=== PATIENT | male | born 1950 | race Caucasian/White ===

== ENCOUNTER 2017-11-19 09:15 | Outpatient (RCR) | payer MEDICARE, OTHER, SELFPAY ==
[2017-10-20 01:20] VITALS: BP 120/70; BP 140/80
--- NOTE | 2017-11-19 10:59 | PCM.CR.ITP ---
Exercise - Initial Assessment - Stages of Change Stages of Change:: Contemplate - Exercise Prescription Mode:: Treadmill, Biodyne, Airdyne, NuStep, Arm Ergometer Angina with exercise?: No - Hypertension Do any of the following apply?: Yes - Intervention Home Exercise/Activity Goal:: Sitting Time <3 hrs/day - Education Goals:: Warm-up, RPE DANIKA Scale, S/S, Safe Exercise, Self-Monitoring - Exercise Program Goals Exercise Program Goals: Aerobic Activity >30 min, B/P <140/90 Exercise - 30-day Assessment - Stages of Change Stages of Change:: Action - Exercise Prescription Mode:: Treadmill, Rower, Airdyne, NuStep Frequency (x/week): 3 Duration:: 35 METs - Progression: 0.5-1 MET as tolerated: 2.5 Target Heart Rate:: 91-106 Max HR 100 - Intervention Home Exercise/Activity Goal:: Sitting Time <3 hrs/day - Education Goals:: Warm-up, RPE DANIKA Scale, S/S, Safe Exercise, Self-Monitoring - Exercise Program Goals Exercise Program Goals: Aerobic Activity >30 min Exercise - 60-Day Assessment - Visit Date of Eval: 10/17/17 - Stages of Change Stages of Change:: Action - Exercise Prescription Mode:: Treadmill, Airdyne, NuStep Frequency (x/week): 3 Duration:: 30 METs: 3.9 Target Heart Rate:: 124-128 Max HR 100 - Hypertension Medication Changes:: No - Intervention Home Exercise/Activity Goal:: Sitting Time <3 hrs/day - Education Goals:: Warm-up, RPE DANIKA Scale, S/S, Safe Exercise, Self-Monitoring - Exercise Program Goals Exercise Program Goals: Aerobic Activity >30 min, B/P <140/90 Exercise - 90-Day Assessment - Visit Date of Eval: 11/19/17 Session #:: 28 - Stages of Change Stages of Change:: Action - Exercise Prescription Mode:: Treadmill, Airdyne, NuStep Frequency (x/week): 3 Duration:: 30 METs: 5.9 Target Heart Rate:: 124-128 Max HR 101 - Hypertension Medication Changes:: No - Intervention Home Exercise/Activity Goal:: Moderate Exercise 30 min/day x 5 days/wk - Education Goals:: Warm-up, RPE DANIKA Scale, S/S, Safe Exercise, Self-Monitoring - Exercise Program Goals Exercise Program Goals: Aerobic Activity >30 min, B/P <140/90 Exercise - Final/Discharge - Hypertension Do any of the following apply?: Yes Nutrition - Initial Assessment - Program Goals Nutrition Program Goals: LDL <70. Total Cholesterol <200. HDL >45. Triglycerides <150. HgbA1C <7%. BMI <25 - Stages of Change Stages of Change:: Contemplate - Diabetes Diabetes:: No Hgb A1C: 6.2 Non-Insulin Dependent?: Yes Do you monitor your blood sugar at home?: Yes - Weight Management Body Fat %:: 33 Total Score:: 2 - Intervention Referral to dietitian:: No Referral to Diabetic Clinic:: No Will attend diet classes:: Yes - Education Gave educational materials for:: Signs & symptoms of hypoglycemia, Signs & symptoms of hyperglycemia, Relate diabetes to coronary artery disease, Healthy eating Nutrition - 30-Day Assessment - Program Goals Nutrition Program Goals: LDL <70. Total Cholesterol <200. HDL >45. Triglycerides <150. HgbA1C <7%. BMI <25 - Stages of Change Stages of Change:: Action - Lipids Has the patient seen the dietitian?: No - Diabetes Diabetes:: No Hgb A1C: 6.2 Non-Insulin Dependent?: Yes - Intervention Referral to dietitian:: No Referral to Diabetic Clinic:: No Will attend diet classes:: Yes - Education Attended class for:: Signs & symptoms of hypoglycemia, Signs & symptoms of hyperglycemia, Relate diabetes to coronary artery disease, Healthy eating Nutrition - 60-Day Assessment - Program Goals Nutrition Program Goals: LDL <70. Total Cholesterol <200. HDL >45. Triglycerides <150. HgbA1C <7%. BMI <25 - Visit Date of Eval: 10/17/17 - Stages of Change Stages of Change:: Action - Lipids Has the patient seen the dietitian?: No - Diabetes Diabetes:: No Hgb A1C: 6.2 Non-Insulin Dependent?: Yes - Intervention Referral to dietitian:: No Referral to Diabetic Clinic:: No Will attend diet classes:: Yes - Education Attended class for:: Signs & symptoms of hypoglycemia, Signs & symptoms of hyperglycemia, Relate diabetes to coronary artery disease, Healthy eating Nutrition - 90-Day Assessment - Program Goals Nutrition Program Goals: LDL <70. Total Cholesterol <200. HDL >45. Triglycerides <150. HgbA1C <7%. BMI <25 - Visit Date of Eval: 11/19/17 - Stages of Change Stages of Change:: Action - Lipids Has the patient seen the dietitian?: No - Diabetes Diabetes:: No Hgb A1C: 6.2 Non-Insulin Dependent?: Yes Random Blood Glucose:: 135 - 135-261 - Weight Management Weight:: 106.141 kg - Intervention Referral to dietitian:: No Referral to Diabetic Clinic:: No Will attend diet classes:: Yes - Education Attended class for:: Signs & symptoms of hypoglycemia, Signs & symptoms of hyperglycemia, Relate diabetes to coronary artery disease, Healthy eating Nutrition - Final Assessment - Program Goals Nutrition Program Goals: LDL <70. Total Cholesterol <200. HDL >45. Triglycerides <150. HgbA1C <7%. BMI <25 - Diabetes Diabetes:: No Hgb A1C: 6.2 Non-Insulin Dependent?: Yes - Weight Management Body Fat %:: 33 Total Score:: 2 - Intervention Referral to dietitian:: No Referral to Diabetic Clinic:: No Will attend diet classes:: Yes Tobacco - Initial Assessment - Program Goals Tobacco Program Goals: Complete smoking cessation. Attend education classes. Improve Knowledge Test score - Stage of Change Stages of Change:: Contemplate - Learning Barriers Learning Barriers: Vision Total Score:: 10 - Family Support Do you have family support?: Yes - Tobacco Use Tobacco Use: Non-smoker How long ago did you quit using tobacco products?: Greater than or equal to 6 months ago Do you use smokeless tobacco?: No - Intervention Smoking Cessation Referral:: No Individual Education/Counseling:: No Education Schedule Given:: Yes - Education Gave educational material for:: Tobacco triggers, Coronary artery disease, Risk factors, Sexuality, Medical compliance, Cardiac A&P, Angina signs & symptoms Tobacco - 30-Day Assessment - Program Goals Tobacco Program Goals: Complete smoking cessation. Attend education classes. Improve Knowledge Test score - Stage of Change Stages of Change:: Action - Learning Barriers Learning Barriers: Participates in education - Family Support Do you have family support?: Yes - Tobacco Use Tobacco Use: Non-smoker Do you use smokeless tobacco?: No - Intervention Smoking Cessation Referral:: No Individual Education/Counseling:: No Education Schedule Given:: Yes - Education Attended class for:: Tobacco triggers, Coronary artery disease, Risk factors, Sexuality, Medical compliance, Cardiac A&P, Angina signs & symptoms Tobacco - 60-Day Assessment - Program Goals Tobacco Program Goals: Complete smoking cessation. Attend education classes. Improve Knowledge Test score - Stage of Change Stages of Change:: Action - Learning Barriers Learning Barriers: Participates in education - Family Support Do you have family support?: Yes - Tobacco Use Tobacco Use: Non-smoker Do you use smokeless tobacco?: No - Intervention Smoking Cessation Referral:: No Individual Education/Counseling:: No Education Schedule Given:: Yes - Education Attended class for:: Tobacco triggers, Coronary artery disease, Risk factors, Sexuality, Medical compliance, Cardiac A&P, Angina signs & symptoms Tobacco - 90-Day Assessment - Program Goals Tobacco Program Goals: Complete smoking cessation. Attend education classes. Improve Knowledge Test score - Stage of Change Stages of Change:: Action - Learning Barriers Learning Barriers: Participates in education - Family Support Do you have family support?: Yes - Tobacco Use Tobacco Use: Non-smoker Do you use smokeless tobacco?: No - Intervention Smoking Cessation Referral:: No Individual Education/Counseling:: No Education Schedule Given:: Yes - Education Attended class for:: Tobacco triggers, Coronary artery disease, Risk factors, Sexuality, Medical compliance, Cardiac A&P, Angina signs & symptoms Tobacco - Final Assessment - Program Goals Tobacco Program Goals: Complete smoking cessation. Attend education classes. Improve Knowledge Test score - Learning Barriers Cardiac Knowledge Test Score:: 10 - Family Support Do you have family support?: Yes - Tobacco Use Tobacco Use: Non-smoker Do you use smokeless tobacco?: No - Intervention Smoking Cessation Referral:: No Individual Education/Counseling:: No Education Schedule Given:: Yes Psychosocial - Initial Assess - Target Goals Target Goals: Assess presence or absence of depression. Using a valid screening tool, maximizes coping skills. Positive support system - Stages of Change Stages of Change:: Contemplate - Psychosocial Test Tool Used:: HANDS Depression Questionnaire Tests Completed: SF - 36 survey completed, Mood Scale Test Total Mood Screening Score:: 7 Self-Efficacy Score:: 6 - Intervention PS - Interventions: Yes Attend Stress Management Classes, Yes Uses Stress Management Skills, No Referral to Mental Health, No Referral to [facility] Case Management, No Referral to Physician - Patient/Program Goal Preventative Medication(s):: Aspirin, MAURISIO inhibitor, Clopidogrel, Beta antonio, Statin/lipid - Assistive Devices Assistive Devices:: None Fall Risk Assessed:: Yes Psychosocial - 30-Day Assess - Target Goals Target Goals: Assess presence or absence of depression. Using a valid screening tool, maximizes coping skills. Positive support system - Stages of Change Stages of Change:: Action - Psychosocial Test Tool Used:: HANDS Depression Questionnaire Total Mood Screening Score:: 7 Self-Efficacy Score:: 6 - Patient/Program Goal Preventative Medication(s):: Aspirin, MAURISIO inhibitor, Clopidogrel, Beta antonio, Statin/lipid - Assistive Devices Assistive Devices:: None Fall Risk Assessed:: Yes Psychosocial - 60-Day Assess - Target Goals Target Goals: Assess presence or absence of depression. Using a valid screening tool, maximizes coping skills. Positive support system - Stages of Change Stages of Change:: Action - Psychosocial Test Tool Used:: HANDS Depression Questionnaire Total Mood Screening Score:: 7 Self-Efficacy Score:: 6 - Patient/Program Goal Preventative Medication(s):: Aspirin, MAURISIO inhibitor, Clopidogrel, Beta antonio, Statin/lipid - Assistive Devices Assistive Devices:: None Fall Risk Assessed:: Yes Psychosocial - 90-Day Assess - Target Goals Target Goals: Assess presence or absence of depression. Using a valid screening tool, maximizes coping skills. Positive support system - Stages of Change Stages of Change:: Action - Psychosocial Test Tool Used:: HANDS Depression Questionnaire Total Mood Screening Score:: 7 Self-Efficacy Score:: 6 - Intervention PS - Interventions: Yes Attend Stress Management Classes, Yes Uses Stress Management Skills, No Referral to Mental Health, No Referral to [facility] Case Management, No Referral to Physician - Education Attended classes for:: Coping techniques, Signs & symptoms of depression, Stress management, Relaxation techniques - Patient/Program Goal Preventative Medication(s):: Aspirin, MAURISIO inhibitor, Clopidogrel, Beta antonio, Statin/lipid - Assistive Devices Assistive Devices:: None Fall Risk Assessed:: Yes Psychosocial - Final Assessmen - Target Goals Target Goals: Assess presence or absence of depression. Using a valid screening tool, maximizes coping skills. Positive support system - Psychosocial Test Tool Used:: HANDS Depression Questionnaire Tests Completed: SF - 36 survey completed, Mood Scale Test Total Mood Screening Score:: 7 Self-Efficacy Score:: 6 - Patient/Program Goal Preventative Medication(s):: Aspirin, MAURISIO inhibitor, Clopidogrel, Beta antonio, Statin/lipid - Assistive Devices Assistive Devices:: None Fall Risk Assessed:: Yes Patient Health Questionnaire 90-Day Re-eval Assessment 1. Little interest or pleasure in doing things: Not at all 2. Feeling down, depressed, or hopeless: Not at all 3. Trouble falling or staying asleep, or sleeping too much: Not at all 4. Feeling tired or having little energy: Not at all 5. Poor appetite or overeating: Not at all 6. Feeling bad about yourself -- or that you are a failure or have let yourself or your family down: Not at all 7. Trouble concentrating on things, such as reading the newspaper or watching television: Not at all 8. Moving or speaking so slowly that other people could have noticed. Or the opposite - being so fidgety or restless that you have been moving around a lot more than usual: Not at all 9. Thoughts that you would be better off , or of hurting yourself in some way: Not at all Total Score: 0 Self-Efficacy 90-Day Re-eval Assessment We would like to know how confident you are in doing certain activities. Please select your confidence level for:: Select your confidence level for the following using the scale 1-10 where 1 is not at all confident and 10 is totally confident. Your score is the average of all 6 responses. Fatigue: How confident are you that you can keep the fatigue caused by your disease from interfering with the things you want to do? Select Number: 10 Physical Discomfort or Pain: How confident are you that you can keep the physical discomfort or pain of your disease from interfering with the things you want to do? Select Number: 10 Emotional Distress: How confident are you that you can keep the emotional distress caused by your disease from interfering with the things you want to do? Select Number: 10 Other Symptoms or Health Problems: How confident are you that you can keep other symptoms or health problems from interfering with the things you want to do? Select Number: 10 Different Tasks and Activities: How confident are you that you can do the different tasks and activities needed to manage your health condition so as to reduce your need to see a doctor? Select Number: 10 Medication: How confident are you that you can do things other than just taking medication to reduce how much your illness affects your everyday life? Select Number: 10 Total Score:: 10 Cardiac Rehabilitation Goals - Cardiac Rehab Goals Cardiac Rehabilitation Goals: 1. Maintain the individual as the primary focus of care. 2. To improve the patient's quality of life. 3. Identification of cardiac risk factors and provide cardiac risk factor management. 4. Enhance the psychosocial status of the patient. 5. Reconditioning enough to allow the patient to resume customary activities. 6. Control symptoms of cardiac disease - Scale Scale for measuring improvement of personal goals: Enter appropriate number in Comments. 2 = Unchanged. 3 = Slightly Better. 4 = Moderate Improvement. 5 = Met my Goal 90-Day Re-eval Assessment Personal Goals: 30-day Re-assessment: Improve energy level - Met, Get back to work, or to resume activities faster - Met, Improve knowledge of cardiac disease - improved., Improve muscle strength and endurance - ongoing improvement., Improve diet and eating habits (eat healthier) - Could benefit from diabetic education/superintendent distribution consult, Control risk factors (learn risk factor modification) - needs improved BS control
== END 2017-11-19 23:59 ==
LOC: CR 09:15
PROVIDERS: Family Provider Student in an Organized Health Care Education/Training Program; PCP Student in an Organized Health Care Education/Training Program; Visit Provider Internal Medicine Cardiovascular Disease
DX: I25.10 Atherosclerotic heart disease of native coronary artery without angina pectoris (principal); Z95.1 Presence of aortocoronary bypass graft; I25.2 Old myocardial infarction
CPT/HCPCS: 93798

== ENCOUNTER 2017-12-08 09:15 | Outpatient (RCR) | payer MEDICARE, OTHER, SELFPAY ==
[2017-08-19 22:24] VITALS: BP 162/89
[2017-08-22 10:53] VITALS: BMI 28.9
[2017-11-20 00:45] VITALS: BP 120/70; BP 140/80
[2017-12-16 08:03] VITALS: BP 126/66; BP 150/70
--- NOTE | 2017-12-16 08:03 | CR.ITP_ITS ---
Exercise - Initial Assessment - Stages of Change Stages of Change:: Contemplate - Exercise Prescription Mode:: Treadmill, Biodyne, Airdyne, NuStep, Arm Ergometer Angina with exercise?: No - Hypertension Do any of the following apply?: Yes - Intervention Home Exercise/Activity Goal:: Sitting Time <3 hrs/day - Education Goals:: Warm-up, RPE DANIKA Scale, S/S, Safe Exercise, Self-Monitoring - Exercise Program Goals Exercise Program Goals: Aerobic Activity >30 min, B/P <140/90 Exercise - 30-day Assessment - Stages of Change Stages of Change:: Action - Exercise Prescription Mode:: Treadmill, Rower, Airdyne, NuStep Frequency (x/week): 3 Duration:: 35 METs - Progression: 0.5-1 MET as tolerated: 2.5 Target Heart Rate:: 91-106 Max HR 100 - Intervention Home Exercise/Activity Goal:: Sitting Time <3 hrs/day - Education Goals:: Warm-up, RPE DANIKA Scale, S/S, Safe Exercise, Self-Monitoring - Exercise Program Goals Exercise Program Goals: Aerobic Activity >30 min Exercise - 60-Day Assessment - Visit Date of Eval: 11/19/17 - Stages of Change Stages of Change:: Action - Exercise Prescription Mode:: Treadmill, Airdyne, NuStep Frequency (x/week): 3 Duration:: 30 METs: 5.9 Target Heart Rate:: 124-128 Max HR 101 - Hypertension Medication Changes:: No - Intervention Home Exercise/Activity Goal:: Moderate Exercise 30 min/day x 5 days/wk - Education Goals:: Warm-up, RPE DANIKA Scale, S/S, Safe Exercise, Self-Monitoring - Exercise Program Goals Exercise Program Goals: Aerobic Activity >30 min, B/P <140/90 Exercise - 90-Day Assessment - Visit Date of Eval: 11/19/17 - Stages of Change Stages of Change:: Action - Exercise Prescription Mode:: Treadmill, Airdyne, NuStep Frequency (x/week): 3 Duration:: 30 METs: 5.9 Target Heart Rate:: 124-128 Max HR 101 - Hypertension Medication Changes:: No - Intervention Home Exercise/Activity Goal:: Moderate Exercise 30 min/day x 5 days/wk - Education Goals:: Warm-up, RPE DANIKA Scale, S/S, Safe Exercise, Self-Monitoring - Exercise Program Goals Exercise Program Goals: Aerobic Activity >30 min, B/P <140/90 Exercise - Final/Discharge - Visit Date of Eval: 12/16/17 - Patient completed CR 12/08/17 - Stages of Change Stages of Change:: Action - Exercise Prescription Mode:: Treadmill, Airdyne, NuStep Frequency (x/week): 3 Duration:: 30 METs: 5.9 Target Heart Rate:: 124-128 w/ Max HR 101 - Hypertension Do any of the following apply?: Yes Resting Blood Pressure:: 126/66 Peak Exercise Blood Pressure:: 150/70 - Intervention Home Exercise/Activity Goal:: Moderate Exercise 30 min/day x 5 days/wk - Education Goal Progress: Goal Met - Exercise Program Goals Exercise Program Goals: Aerobic Activity >30 min Nutrition - Initial Assessment - Program Goals Nutrition Program Goals: LDL <70. Total Cholesterol <200. HDL >45. Triglycerides <150. HgbA1C <7%. BMI <25 - Stages of Change Stages of Change:: Contemplate - Diabetes Diabetes:: No Hgb A1C: 6.2 Non-Insulin Dependent?: Yes Do you monitor your blood sugar at home?: Yes - Weight Management Body Fat %:: 33 Total Score:: 2 - Intervention Referral to dietitian:: No Referral to Diabetic Clinic:: No Will attend diet classes:: Yes - Education Gave educational materials for:: Signs & symptoms of hypoglycemia, Signs & symptoms of hyperglycemia, Relate diabetes to coronary artery disease, Healthy eating Nutrition - 30-Day Assessment - Program Goals Nutrition Program Goals: LDL <70. Total Cholesterol <200. HDL >45. Triglycerides <150. HgbA1C <7%. BMI <25 - Stages of Change Stages of Change:: Action - Lipids Has the patient seen the dietitian?: No - Diabetes Diabetes:: No Hgb A1C: 6.2 Non-Insulin Dependent?: Yes - Intervention Referral to dietitian:: No Referral to Diabetic Clinic:: No Will attend diet classes:: Yes - Education Attended class for:: Signs & symptoms of hypoglycemia, Signs & symptoms of hyperglycemia, Relate diabetes to coronary artery disease, Healthy eating Nutrition - 60-Day Assessment - Program Goals Nutrition Program Goals: LDL <70. Total Cholesterol <200. HDL >45. Triglycerides <150. HgbA1C <7%. BMI <25 - Visit Date of Eval: 11/19/17 - Stages of Change Stages of Change:: Action - Lipids Has the patient seen the dietitian?: No - Diabetes Diabetes:: No Hgb A1C: 6.2 Non-Insulin Dependent?: Yes Random Blood Glucose:: 135 - 135-261 - Intervention Referral to dietitian:: No Referral to Diabetic Clinic:: No Will attend diet classes:: Yes - Education Attended class for:: Signs & symptoms of hypoglycemia, Signs & symptoms of hyperglycemia, Relate diabetes to coronary artery disease, Healthy eating Nutrition - 90-Day Assessment - Program Goals Nutrition Program Goals: LDL <70. Total Cholesterol <200. HDL >45. Triglycerides <150. HgbA1C <7%. BMI <25 - Visit Date of Eval: 11/19/17 - Stages of Change Stages of Change:: Action - Lipids Has the patient seen the dietitian?: No - Diabetes Diabetes:: No Hgb A1C: 6.2 Non-Insulin Dependent?: Yes Random Blood Glucose:: 135 - 135-261 - Intervention Referral to dietitian:: No Referral to Diabetic Clinic:: No Will attend diet classes:: Yes - Education Attended class for:: Signs & symptoms of hypoglycemia, Signs & symptoms of hyperglycemia, Relate diabetes to coronary artery disease, Healthy eating Nutrition - Final Assessment - Program Goals Nutrition Program Goals: LDL <70. Total Cholesterol <200. HDL >45. Triglycerides <150. HgbA1C <7%. BMI <25 - Visit Date of Eval: 12/16/17 - patient discharged 12/08/2017 - Stages of Change Stages of Change:: Action - Diabetes Diabetes:: No Hgb A1C: 6.2 Non-Insulin Dependent?: Yes - Weight Management Height: 6 ft 2 in Weight:: 107.18 kg - weight unchanged Body Fat %:: 33 Total Score:: 2 - Intervention Referral to dietitian:: No Referral to Diabetic Clinic:: No Will attend diet classes:: Yes - Education Education Goal Reached?: Yes Tobacco - Initial Assessment - Program Goals Tobacco Program Goals: Complete smoking cessation. Attend education classes. Improve Knowledge Test score - Stage of Change Stages of Change:: Contemplate - Learning Barriers Learning Barriers: Vision Total Score:: 10 - Family Support Do you have family support?: Yes - Tobacco Use Tobacco Use: Non-smoker How long ago did you quit using tobacco products?: Greater than or equal to 6 months ago Do you use smokeless tobacco?: No - Intervention Smoking Cessation Referral:: No Individual Education/Counseling:: No Education Schedule Given:: Yes - Education Gave educational material for:: Tobacco triggers, Coronary artery disease, Risk factors, Sexuality, Medical compliance, Cardiac A&P, Angina signs & symptoms Tobacco - 30-Day Assessment - Program Goals Tobacco Program Goals: Complete smoking cessation. Attend education classes. Improve Knowledge Test score - Stage of Change Stages of Change:: Action - Learning Barriers Learning Barriers: Participates in education - Family Support Do you have family support?: Yes - Tobacco Use Tobacco Use: Non-smoker Do you use smokeless tobacco?: No - Intervention Smoking Cessation Referral:: No Individual Education/Counseling:: No Education Schedule Given:: Yes - Education Attended class for:: Tobacco triggers, Coronary artery disease, Risk factors, Sexuality, Medical compliance, Cardiac A&P, Angina signs & symptoms Tobacco - 60-Day Assessment - Program Goals Tobacco Program Goals: Complete smoking cessation. Attend education classes. Improve Knowledge Test score - Stage of Change Stages of Change:: Action - Learning Barriers Learning Barriers: Participates in education - Family Support Do you have family support?: Yes - Tobacco Use Tobacco Use: Non-smoker Do you use smokeless tobacco?: No - Intervention Smoking Cessation Referral:: No Individual Education/Counseling:: No Education Schedule Given:: Yes - Education Attended class for:: Tobacco triggers, Coronary artery disease, Risk factors, Sexuality, Medical compliance, Cardiac A&P, Angina signs & symptoms Tobacco - 90-Day Assessment - Program Goals Tobacco Program Goals: Complete smoking cessation. Attend education classes. Improve Knowledge Test score - Stage of Change Stages of Change:: Action - Learning Barriers Learning Barriers: Participates in education - Family Support Do you have family support?: Yes - Tobacco Use Tobacco Use: Non-smoker Do you use smokeless tobacco?: No - Intervention Smoking Cessation Referral:: No Individual Education/Counseling:: No Education Schedule Given:: Yes - Education Attended class for:: Tobacco triggers, Coronary artery disease, Risk factors, Sexuality, Medical compliance, Cardiac A&P, Angina signs & symptoms Tobacco - Final Assessment - Program Goals Tobacco Program Goals: Complete smoking cessation. Attend education classes. Improve Knowledge Test score - Stage of Change Stages of Change:: Action - Learning Barriers Cardiac Knowledge Test Score:: 10 - Family Support Do you have family support?: Yes - Tobacco Use Tobacco Use: Non-smoker Do you use smokeless tobacco?: No - Intervention Smoking Cessation Referral:: No Individual Education/Counseling:: No Education Schedule Given:: Yes - Education Education Goal Reached?: Yes Psychosocial - Initial Assess - Target Goals Target Goals: Assess presence or absence of depression. Using a valid screening tool, maximizes coping skills. Positive support system - Stages of Change Stages of Change:: Contemplate - Psychosocial Test Tool Used:: HANDS Depression Questionnaire Tests Completed: SF - 36 survey completed, Mood Scale Test Total Mood Screening Score:: 7 Self-Efficacy Score:: 6 - Education Gave educational materials for:: Coping techniques, Signs & symptoms of depression, Stress management, Relaxation techniques - Patient/Program Goal Preventative Medication(s):: Aspirin, MAURISIO inhibitor, Clopidogrel, Beta antonio, Statin/lipid - Assistive Devices Assistive Devices:: None Fall Risk Assessed:: Yes Psychosocial - 30-Day Assess - Target Goals Target Goals: Assess presence or absence of depression. Using a valid screening tool, maximizes coping skills. Positive support system - Stages of Change Stages of Change:: Action - Psychosocial Test Tool Used:: HANDS Depression Questionnaire Total Mood Screening Score:: 7 Self-Efficacy Score:: 6 - Patient/Program Goal Preventative Medication(s):: Aspirin, MAURISIO inhibitor, Clopidogrel, Beta antonio, Statin/lipid - Assistive Devices Assistive Devices:: None Fall Risk Assessed:: Yes Psychosocial - 60-Day Assess - Target Goals Target Goals: Assess presence or absence of depression. Using a valid screening tool, maximizes coping skills. Positive support system - Stages of Change Stages of Change:: Action - Psychosocial Test Tool Used:: HANDS Depression Questionnaire Total Mood Screening Score:: 7 Self-Efficacy Score:: 6 - Education Attended classes for:: Coping techniques, Signs & symptoms of depression, Stress management, Relaxation techniques - Patient/Program Goal Preventative Medication(s):: Aspirin, MAURISIO inhibitor, Clopidogrel, Beta antonio, Statin/lipid - Assistive Devices Assistive Devices:: None Fall Risk Assessed:: Yes Psychosocial - 90-Day Assess - Target Goals Target Goals: Assess presence or absence of depression. Using a valid screening tool, maximizes coping skills. Positive support system - Stages of Change Stages of Change:: Action - Psychosocial Test Tool Used:: HANDS Depression Questionnaire Total Mood Screening Score:: 7 Self-Efficacy Score:: 6 - Education Attended classes for:: Coping techniques, Signs & symptoms of depression, Stress management, Relaxation techniques - Patient/Program Goal Preventative Medication(s):: Aspirin, MAURISIO inhibitor, Clopidogrel, Beta antonio, Statin/lipid - Assistive Devices Assistive Devices:: None Fall Risk Assessed:: Yes Psychosocial - Final Assessmen - Target Goals Target Goals: Assess presence or absence of depression. Using a valid screening tool, maximizes coping skills. Positive support system - Stages of Change Stages of Change:: Action - Psychosocial Test Tool Used:: HANDS Depression Questionnaire Tests Completed: SF - 36 survey completed, Mood Scale Test Total Mood Screening Score:: 7 Self-Efficacy Score:: 6 - Intervention PS - Interventions: Yes Attend Stress Management Classes, Yes Uses Stress Management Skills, No Referral to Mental Health, No Referral to [facility] Case Management, No Referral to Physician - Education Education Goal Reached?: Yes - Patient/Program Goal Preventative Medication(s):: Aspirin, MAURISIO inhibitor, Clopidogrel, Beta antonio, Statin/lipid - Assistive Devices Assistive Devices:: None Fall Risk Assessed:: Yes Patient Health Questionnaire Discharge Assessment 1. Little interest or pleasure in doing things: Not at all 2. Feeling down, depressed, or hopeless: Not at all 3. Trouble falling or staying asleep, or sleeping too much: Not at all 4. Feeling tired or having little energy: Not at all 5. Poor appetite or overeating: Not at all 6. Feeling bad about yourself -- or that you are a failure or have let yourself or your family down: Not at all 7. Trouble concentrating on things, such as reading the newspaper or watching television: Not at all 8. Moving or speaking so slowly that other people could have noticed. Or the opposite - being so fidgety or restless that you have been moving around a lot more than usual: Not at all 9. Thoughts that you would be better off , or of hurting yourself in some way: Not at all Total Score: 0 Knowledge Test - Check your knowledge Discharge The #1 cause of in the [place] each year is:: Heart disease Which of the following is a common treatment for heart disease?: All of the above The arteries that feed the heart are called:: Coronary arteries HDL cholesterol is known as the good cholesterol.: True What disease increases your risk for heart disease?: Diabetes What food product raises blood cholesterol level the most?: Saturated fat The bad cholesterol in the blood is called:: LDL Hypertension is another word for:: High blood pressure A blood pressure reading of 148/88 is considered normal.: False Exercise will only benefit your health when your heart rate reaches a target level.: False Total Score:: 10 Self-Efficacy Discharge Assessment We would like to know how confident you are in doing certain activities. Please select your confidence level for:: Select your confidence level for the following using the scale 1-10 where 1 is not at all confident and 10 is totally confident. Your score is the average of all 6 responses. Fatigue: How confident are you that you can keep the fatigue caused by your disease from interfering with the things you want to do? Select Number: 9 Physical Discomfort or Pain: How confident are you that you can keep the physical discomfort or pain of your disease from interfering with the things you want to do? Select Number: 10 Emotional Distress: How confident are you that you can keep the emotional distress caused by your disease from interfering with the things you want to do? Select Number: 10 Other Symptoms or Health Problems: How confident are you that you can keep other symptoms or health problems from interfering with the things you want to do? Select Number: 9 Different Tasks and Activities: How confident are you that you can do the different tasks and activities needed to manage your health condition so as to reduce your need to see a doctor? Select Number: 10 Medication: How confident are you that you can do things other than just taking medication to reduce how much your illness affects your everyday life? Select Number: 10 Total Score:: 9 Nutrition Survey - Nutrition Survey Instructions Scoring Instructions: Scoring is as follows: Yes = 1 points. No = 0 point. Patient score that is >/=12 is considered to be at potential nutritional risk and could benefit from a referral to a registered dietitian. - Nutrition Survey Discharge Have you lost >10 lbs over the past 2 months without trying?: No Are you following a special diet at home for diabetes, low fat, or low salt?: Yes Are you interested in meeting with a dietitian for help understanding your diet? : No Do you eat less than 3 meals a day?: No Do you eat fatty meats (subramanian, sausage, ribs, etc), fried foods, desserts, large amounts of salad dressings, margarine, butter, or cheese most days?: No Do you have food allergies? [Enter types in comment field]: No Do you eat in restaurants more than 3 times a week?: No Do you season food with salt, seasoning salt, or garlic salt?: No Do you used canned, boxed, frozen meals, or soups, seasoning packets?: Yes Total Score:: 2 Cardiac Rehabilitation Goals - Cardiac Rehab Goals Cardiac Rehabilitation Goals: 1. Maintain the individual as the primary focus of care. 2. To improve the patient's quality of life. 3. Identification of cardiac risk factors and provide cardiac risk factor management. 4. Enhance the psychosocial status of the patient. 5. Reconditioning enough to allow the patient to resume customary activities. 6. Control symptoms of cardiac disease - Scale Scale for measuring improvement of personal goals: Enter appropriate number in Comments. 2 = Unchanged. 3 = Slightly Better. 4 = Moderate Improvement. 5 = Met my Goal Discharge Assessment Personal Goals: Discharge Reassessment: Improve management of stress and emotions, Improve energy level, Improve knowledge of cardiac disease, Improve muscle strength and endurance, Improve diet and eating habits (eat healthier), Control risk factors (learn risk factor modification)
== END 2017-12-08 11:00 | disposition home or self-care (01) ==
LOC: CR 09:15
PROVIDERS: Family Provider Student in an Organized Health Care Education/Training Program; PCP Student in an Organized Health Care Education/Training Program; Visit Provider Internal Medicine Cardiovascular Disease
DX: I25.10 Atherosclerotic heart disease of native coronary artery without angina pectoris (principal); Z95.1 Presence of aortocoronary bypass graft; I25.2 Old myocardial infarction
CPT/HCPCS: 93798

== ENCOUNTER 2018-05-28 21:41 | Observation (INO) | payer MEDICARE, OTHER, SELFPAY ==
[2018-05-28 21:42] VITALS: BP 149/80; PULSE 64; RESP 16; TEMP 36.3; O2SAT 98; BMI 28.2
[2018-05-28 21:57] VITALS: O2SAT 99
[2018-05-28 22:09] LABS: Absolute Lymphocyte Count 0.92 X10^3/ul (0.83-4.51); Absolute Neutrophil Count 2.8 X10^3/uL (2.0-7.7); Basophil# 0.02 X10^3/uL; Basophil% 0.4 % (0-1); Eosinophil# 0.24 X10^3/uL; Eosinophils% 5.3 % (0-5); Hemoglobin 12.7 g/dl (13.0-16.5); Lymphocyte # 0.92 X10^3/ul (4.0); Lymphocyte % 20.4 % (19-41); Mean Corp Hgb Conc 33.4 g/gl (32-36); Mean Corpuscular Hgb 29.7 pg (27.0-32.0); Mean Platelet Vol. 10.7 fl (6.2-12.0); Monocyte# 0.55 X10^3/uL; Monocyte% 12.2 % (0-10); Neutrophil # 2.77 X10^3/uL (2.7-7.7); Neutrophil % 61.7 % (47-70); Platelet Count 195 K/mm3 (150-450); RBC Distribution Width CV 13.4 % (11.6-14.6); RBC Distribution Width SD 43.5 fl (35.1-43.9); Red Blood Count 4.27 M/mm3 (4.6-6.2); White Blood Count 4.5 K/mm3 (4.4-11.0)
--- NOTE | 2018-05-28 22:10 | RAD_ITS ---
STUDY: X-RAY CHEST REASON FOR EXAM: Male, 67 years old. Chest pain. TECHNIQUE: Single AP portable view of the chest. COMPARISON: 07/11/2017. FINDINGS: There is elevation of the right hemidiaphragm. The lungs are clear and expanded. There is no demonstrated pleural abnormality. Sternal cerclage wires and vascular clips are present from a prior sternotomy and coronary artery bypass graft procedure (CABG). Again are calcified right paratracheal and azygous nodes. Normal visualized pulmonary arteries. There is atherosclerotic calcification of the aortic arch with tortuosity. The thoracic spine is obscured. Normal visualized ribs, clavicles, and shoulders. There is no demonstrated abnormality of the visualized soft tissue structures of the upper abdomen. RAD/Chest 1 View (Portable) IMPRESSION: No significant change. Elevation of the right hemidiaphragm. No active pulmonary disease. Status post CABG. Electronically Signed: William Bagley MD at 22:46 EDT Tel , Service support ,
[2018-05-28 22:11] LABS: POSITIVE COUNT NO; POSITIVE DIFFERENTIAL NO; POSITIVE MORPHOLOGY NO
--- NOTE | 2018-05-28 22:41 | ED.VISSUMM ---
- ER Visit Summary Date of Service: 05/28/18 Chief Complaint: Chest pain History of Present Illness: The patient is a 67 M who presents with chest pain that began approximately 1-2 hours prior to arrival. Patient states he was sitting when the pain began. Patient describes his pain is dull and heavy. Patient states the pain is over the substernal area. Patient denies any radiation of the pain. Patient states nothing seems to make the pain worse. Patient did take one sublingual nitroglycerin which helped his pain. Patient admits to some acid reflux and some palpitations with the pain. Patient denies any nausea or vomiting. Patient denies any shortness of breath or diaphoresis. Patient does have a history of coronary artery disease, hypertension, and diabetes. Physical Examination: Vital signs are stable. Patient is afebrile. Patient is in no acute distress. Oral mucosa is pink and moist. Neck is supple. Trachea is midline. There is no JVD noted. Heart was regular rate and rhythm. Lungs are clear and equal bilaterally. There is good respiratory effort noted. Abdomen is soft. Bowel sounds are normal. There is no tenderness noted. Cranial nerves II through XII are intact. There are no focal motor or sensory deficits noted. The remaining physical exam is within normal limits. Test Results: EKG showed normal sinus rhythm with a rate of 67. There are no acute ST or T-wave changes. There are no changes compared to previous EKG dated 07/03/2017. Chest x-ray does not show any acute cardiopulmonary process. CBC, basic metabolic profile, and troponin were obtained and were essentially within normal limits. Emergency Department Course and Treatment: Patient was given aspirin and sublingual nitroglycerin here. Patient felt better on reevaluation. Patient has a FRED score of 4 and a HEART score of 6. Case was discussed with the hospitalist. Patient will be admitted. Patient understood and was agreeable with the plan. All questions were answered. Disposition: Admit to hospital Impression: Chest pain This note was generated with [employer] dictation software. It may contain incorrect words, spelling, and punctuation that were not noted in review of the chart prior to signing ED Disposition - Plan for ED Patient: Disposition: Acute Care Hospital [facility] Chief Complaint: Chest Pain Diagnosis: Chest pain at rest Referrals: Josse Galvan DO [Primary Care Provider] -
--- NOTE | 2018-05-28 22:45 | ED.DCSUM_ITS ---
- ER Visit Summary Date of Service: 05/28/18 Chief Complaint: Chest pain History of Present Illness: The patient is a 67 M who presents with chest pain that began approximately 1-2 hours prior to arrival. Patient states he was sitting when the pain began. Patient describes his pain is dull and heavy. Patient states the pain is over the substernal area. Patient denies any radiation of the pain. Patient states nothing seems to make the pain worse. Patient did take one sublingual nitroglycerin which helped his pain. Patient admits to some acid reflux and some palpitations with the pain. Patient denies any nausea or vomiting. Patient denies any shortness of breath or diaphoresis. Patient does have a history of coronary artery disease, hypertension, and diabetes. Physical Examination: Vital signs are stable. Patient is afebrile. Patient is in no acute distress. Oral mucosa is pink and moist. Neck is supple. Trachea is midline. There is no JVD noted. Heart was regular rate and rhythm. Lungs are clear and equal bilaterally. There is good respiratory effort noted. Abdomen is soft. Bowel sounds are normal. There is no tenderness noted. Cranial nerves II through XII are intact. There are no focal motor or sensory deficits noted. The remaining physical exam is within normal limits. Test Results: EKG showed normal sinus rhythm with a rate of 67. There are no acute ST or T-wave changes. There are no changes compared to previous EKG dated 07/03/2017. Chest x-ray does not show any acute cardiopulmonary process. CBC, basic metabolic profile, and troponin were obtained and were essentially within normal limits. Emergency Department Course and Treatment: Patient was given aspirin and sublingual nitroglycerin here. Patient felt better on reevaluation. Patient has a FRED score of 4 and a HEART score of 6. Case was discussed with the hospitalist. Patient will be admitted. Patient understood and was agreeable with the plan. All questions were answered. Disposition: Admit to hospital Impression: Chest pain This note was generated with [employer] dictation software. It may contain incorrect words, spelling, and punctuation that were not noted in review of the chart prior to signing ED Disposition - Plan for ED Patient: Disposition: Acute Care Hospital [facility] Chief Complaint: Chest Pain Diagnosis: Chest pain at rest Referrals: Josse Galvan DO [Primary Care Provider] -
[2018-05-28 22:49] LABS: Anion Gap 3 (5-15); BUN 15 mg/dL (7-18); BUN/Creat Ratio 15.3 RATIO (10-20); Calcium,Total 8.9 mg/dL (8.5-10.1); Chloride 102 mmol/L (98-107); Creatinine, Serum 0.98 mg/dL (0.70-1.30); EST Glomerular Filtration Rate 81 mL/min (>60); Est Glom Filt Rate - Afr Amer 97 mL/min (>60); Estimated Creatinine Clearance 78.08 ml/min; Glucose 122 mg/dL (74-106); Potassium 3.6 mmol/L (3.5-5.1); Sodium Level 138 mmol/L (136-145)
[2018-05-28] MEDS: Aspirin 81 MG TAB.CHEW 324 MG PO (22:55)
[2018-05-28 22:56] VITALS: BP 147/91; PULSE 72
[2018-05-28 22:57] VITALS: BP 147/91; PULSE 70; RESP 13; O2SAT 98
[2018-05-28 23:05] VITALS: BP 143/84; PULSE 67
[2018-05-28 23:06] VITALS: BP 143/84; PULSE 70; RESP 13; O2SAT 96
[2018-05-29] VITALS (10 sets, daily range): BP systolic 134–140; BP diastolic 68–78; PULSE 63–87; RESP 14–21; TEMP 36.7–37.1; O2SAT 95–99; BMI 28.7
--- NOTE | 2018-05-29 00:12 | PCM.HP.STD ---
Problem List (1) Chest pain at rest Status: Acute (2) Dyslipidemia Status: Chronic (3) Hypothyroidism Status: Chronic (4) Essential hypertension Status: Chronic History of Present Illness Date of Admission: 05/29/18 Chief Complaint: Chest pain at rest. The patient is a 67 year old M with a significant history of CAD status post CABG in June 2017 at [facility]; former smoker; hypertension; prediabetes/diabetes mellitus; and Hodgkin's lymphoma status post chemotherapy and radiation who presents because of pain in his substernal area. His chest pain AT rest while watching TV in a recliner. He described his chest pain as dull aching and nonradiating. He states that his pain although was mild was similar to his previous chest pain that necessitated a CABG. And like his chest pain that required a CABG, he had a feeling of trying to burp. His symptoms started about one half hours to 2 hours prior to arrival at emergency department. He took a nitroglycerin. He is not so sure whether the nitroglycerin helped him. But he stated that the nitroglycerin gave him headache and made him to forget about his chest pain. At emergency department he was also given 2 doses of sublingual nitroglycerin. At the time of my examination he said that his chest pain had gone away. Patient follows up with Dr. Aleksander Maynard and he is scheduled to see him again next week. Past Medical History Past Medical History (Chronic Problems): Chronic Problems Dyslipidemia (Chronic) Hypothyroidism (Chronic) BMI greater than 30 (Chronic) Essential hypertension (Chronic) Allergies Iodinated Contrast- Oral and IV Dye Adverse Reaction (Verified 05/28/18 21:45) Nausea/Vom/Diarrhea Home Medications: Ambulatory Orders Medication Instructions Recorded Aspirin [Aspirin, Baby] 81 mg PO DAILY@0800 06/18/17 Atorvastatin Calcium [Lipitor] 40 mg PO DAILY 06/18/17 Levothyroxine [Synthroid] 200 mcg PO SUMOTUWETHFR 06/18/17 Levothyroxine [Synthroid] 400 mcg PO SA 06/18/17 Magnesium 400 mg PO BID 06/18/17 Metoprolol Succinate 100 mg PO TID 06/18/17 Multivitamin [Multiple Vitamins] 1 each PO DAILY 06/18/17 Ubidecarenone [Co Q-10] 10 mg PO DAILY 06/18/17 Cholecalciferol (Vitamin D3) 1 tab PO DAILY 08/19/17 [Vitamin D3] Losartan Potassium [Cozaar] 50 mg PO BID 08/19/17 hydrALAZINE [Apresoline] 25 mg PO TID #90 tablet 08/19/17 Acetaminophen [Tylenol Extra 500 mg PO Q6H PRN PRN 05/28/18 Strength] Potassium Chloride [K-Dur] 20 meq PO DAILY 05/28/18 Triamterene 37.5MG/Hctz 25MG 1 tablet PO DAILY 05/28/18 [Maxzide 37.5 mg-25 mg Tablet] Surgical History: cataract, coronary bypass surgery, - - lymphoma Psychiatric History: No pertinent psych hx Lives: Spouse/ Significant Other Smoking Status: Former smoker Drugs: None - *Family History Maternal History Items: - - Patient is not sure if his mom had heart disease Sibling History Items: Heart Disease Review of Systems Constitutional: Denies: Chills, Fever, Weight Change Eyes: Denies: Blurred vision, Pain HEENT: Reports: Difficulty Hearing - Chronicattributes to chemotherapy for Hodgkin's lymphoma. Cardiovascular: Reports: Chest Pain. Denies: Syncope Respiratory: Denies: Cough, Shortness of breath at rest, Sputum production Gastrointestinal: Denies: Abdominal Pain, Nausea, Vomiting Genitourinary: Denies: Dysuria Musculoskeletal: Denies: Joint Pain, Joint Tenderness Skin: Denies: Rash, Wounds Neurological: Denies: Numbness, Tingling, Focal weakness Psychiatric: Denies: Anxiety, Depression, Homicidal Ideations, Suicidal Ideations Hematologic/ Lymphatic: Denies: Easy Bruising, Easy Bleeding VTE Information - Inpt Only VTE Present on Admission: No VTE Mechan Device Prophylaxis: None VTE Pharm Prophylaxis ordered?: Yes Patient Problems: Active and Suspected Problems Chest pain at rest (Acute) - Physical Exam General: Alert, Oriented x3, Cooperative HEENT: Atraumatic, PERRLA, EOMI, Normocephalic Neck: Supple, No JVD, Negative Carotid Bruits Lungs: Clear to auscultation, Normal air movement Cardiovascular: Regular rate, No murmurs, - - Nontender chest Abdomen: Bowel Sounds Present, Soft, Non Tender Extremities: No edema, Capillary Refill Less than 3 Seconds Skin: No rashes, No breakdown Musculoskeletal: No Tenderness to Palpation of Joints or Extremities Neurological: - - Hard of hearingchronic Vital Signs Temp Pulse Resp BP Pulse Ox 97.4 F L 70 13 143/84 H 96 05/28/18 21:42 05/28/18 23:06 05/28/18 23:06 05/28/18 23:06 05/28/18 23:06 Oxygen Flow Rate (L/min) 2 Oxygen Delivery Method Nasal Cannula Weight: 94.347 kg Body Mass Index (BMI) 28.2 Laboratory Tests Past 24 Hrs 05/28/18 05/28/18 21:45 21:45 WBC 4.5 RBC 4.27 L Hgb 12.7 L Hct 38.0 L MCV 89.0 MCH 29.7 MCHC 33.4 RDW 13.4 RDW Differential 43.5 Plt Count 195 MPV 10.7 Immature Gran % (Auto) 0.000 Neut % (Auto) 61.7 Lymph % (Auto) 20.4 Dale % (Auto) 12.2 H Eos % (Auto) 5.3 H Baso % (Auto) 0.4 Absolute Neuts (auto) 2.8 Absolute Lymphs (auto) 0.92 Total Counted Not Reportable Sodium 138 Potassium 3.6 Chloride 102 Carbon Dioxide 33.0 H Anion Gap 3 L BUN 15 Creatinine 0.98 Estim Creat Clear Calc 78.08 Est GFR (MDRD) Af Amer 97 Est GFR (MDRD) Non-Af 81 BUN/Creatinine Ratio 15.3 Glucose 122 H Calcium 8.9 Troponin I < 0.015 Assessment/Plan All Active Problems Chest pain at rest (Acute) Unstable angina pectoris (Acute) The patient is a 67 year old M with a significant history of CAD status post CABG in June 2017 at [facility]; former smoker; hypertension; prediabetes/diabetes mellitus; and Hodgkin's lymphoma status post chemotherapy and radiation with subsequent external chest pain and a HEART score of 6. Chest pain Admit to a monitored bed on PCU Received aspirin 324?1 at emergency department. ASA 81 mg p.o. daily SL NTG 0.4 mg prn as needed for chest pain Serial cardiac enzymes Stat EKG as needed for chest pain Exercise Stress test with nuclear imaging in the AM Home metoprolol held pending stress test in a.m. Hypertension Losartan, Triamterene, Hydralazine po continued We will hold metoprolol for now pending stress test in the a.m. Hydralazine as needed for systolic blood pressure more than 160. Hypothyroidism Home Synthroid continue. Prediabetes/diabetes Patient states that he has been a prediabetes to borderline diabetes any controlled his diet to manage his diabetes. N.p.o. for stress test in a.m. When patient is ready for diet I recommend cardiac calorie controlled diet with no concentrated sweets. DVT prophylaxis ordered. Subcutaneous Lovenox. Code Visit OBSV E&M: 96736 Initial observation care L3
--- NOTE | 2018-05-29 01:02 | NURSING ---
ED REPORT RECEIVED. CALLED STORE ASSISTANT, OK FOR PATIENT TO COME TO FLOOR.
[2018-05-29 05:02] LABS: Hemoglobin 11.8 g/dl (13.0-16.5); Mean Corp Hgb Conc 33.7 g/gl (32-36); Mean Corpuscular Hgb 29.9 pg (27.0-32.0); Mean Corpuscular Volume 88.8 fL (80-94); Platelet Count 166 K/mm3 (150-450); RBC Distribution Width CV 13.3 % (11.6-14.6); RBC Distribution Width SD 43.4 fl (35.1-43.9); Red Blood Count 3.94 M/mm3 (4.6-6.2); White Blood Count 3.3 K/mm3 (4.4-11.0)
[2018-05-29 05:04] LABS: Scan Indicated on CBC? Y/N NO
[2018-05-29 05:20] LABS: Anion Gap 7 (5-15); BUN 14 mg/dL (7-18); BUN/Creat Ratio 16.2 RATIO (10-20); Calcium,Total 8.9 mg/dL (8.5-10.1); Chloride 106 mmol/L (98-107); Creatinine, Serum 0.86 mg/dL (0.70-1.30); EST Glomerular Filtration Rate 93 mL/min (>60); Est Glom Filt Rate - Afr Amer 113 mL/min (>60); Estimated Creatinine Clearance 88.98 ml/min; Glucose 114 mg/dL (74-106); International Normalized Ratio 1.1; Potassium 3.3 mmol/L (3.5-5.1); Prothrombin Time (Protime)PT. 13.9 SECONDS (11.7-14.9); Sodium Level 143 mmol/L (136-145)
[2018-05-29 05:21] LABS: Partial Thromboplast Time 28.9 Seconds (24.1-36.2)
--- NOTE | 2018-05-29 06:09 | STE_ITS ---
Reason For Study: Chest Pain Stress Results Protocol: Navarro Protocol Maximum Predicted HR: 151 bpm Target HR: 128 bpm% Max imum Predicted HR: 65 % DurationHeart Rate Stage (mm:ss) (bpm) BPCom ment Baseline 65 118/72 No Chest Pain Navarro Protocol Stage I 3:00 81 124/68No Chest Pain Navarro Protocol Stage II 3:00 90 130/70No Chest Pain; Mild Dyspnea Navarro Protocol Stage III 3:00 98 160/72No Chest Pain; Moderate Dyspnea; Leg Pain Recovery 69 122/74 No Chest Pain Stress Duration: 9:00 mm:ss Maximum Stress HR: 98 bpmME TS: 10 Baseline Echocardiogram Findings The estimated ejection fraction is 65 %. Stress Echo Wall motion Data Resting WMIntermediate WMStress WM Resting Wall Motion Wall Motion Stress No regional wall motion No regional wall motion abnormalities noted. abnormalities noted. EKG Data Normal intervals are noted. The patient exercised according to the regular Navarro protocol for a total duration of 9:00. The maximum heart rate attained was 112 beats per minute. This was 74% of maximum predicted heart rate. The patient exercised into stage 4 of the Navarro protocol. During stress, there were no ST or T wave changes noted to suggest ischemia. No clinical angina was noted. Interpretation Summary The estimated ejection fraction is 65 %. Normal, adequate, treadmill echocardiogram. Negative for ischemia by EKG and echocardiographic criteria. No anginal symptoms noted. Rare PVC noted. Appropriate blood pressure response to exercise. Average exercise capacity for age. Final LVEF is 75%. Although patient did not reach target heart rate, he had an excellent rate pressure product making this an adequate stress test for evaluation of ischemia. Test terminated due to leg discomfort. No complications. Ordering Physician: Vasquez Hyatt Referring Physician: Jose Hancock Performed By: Rosey Smith, CARLOS, RVT
[2018-05-29] MEDS: Aspirin 81 MG TAB.CHEW PO (06:24)
[2018-05-29] MEDS: hydrALAZINE 25 MG Tablet PO (06:24)
[2018-05-29] MEDS: Losartan Potassium 50 MG Tablet PO (06:25)
[2018-05-29] MEDS: Levothyroxine 100 MCG Tablet 200 MCG PO (06:25)
[2018-05-29] MEDS: Multivitamins,Therapeutic Tablet 1 TABLET PO (09:13)
[2018-05-29] MEDS: Triamterene 37.5MG/Hctz 25MG Capsule 1 CAP PO (09:13)
[2018-05-29] MEDS: Magnesium Oxide 400 MG Tablet PO (09:14)
[2018-05-29] MEDS: Acetaminophen 500 MG Tablet PO (09:42)
--- NOTE | 2018-05-29 12:32 | PCM.DC ---
- Discharge Diagnoses Current Active Problems: Current Active and Chronic Problems Chest pain at rest (Acute) You will use the following diet at home:: Cardiac Your food should be the consistency of: Regular Your liquids should be the consistency of: Regular/Thin Discharge Activity: Return to Normal Activity Allergies/Adverse Reactions: Allergies Iodinated Contrast- Oral and IV Dye Adverse Reaction (Verified 05/28/18 21:45) Nausea/Vom/Diarrhea Medications to take at Discharge Aspirin [Aspirin, Baby] 162 mg PO DAILY@0800 06/18/17 Atorvastatin Calcium [Lipitor] 40 mg PO DAILY 06/18/17 Levothyroxine [Synthroid] 200 mcg PO MOTUTHFR 06/18/17 Levothyroxine [Synthroid] 400 mcg PO MOWE 06/18/17 Magnesium 400 mg PO BID 06/18/17 Metoprolol Succinate 100 mg PO TID 06/18/17 Multivitamin [Multiple Vitamins] 1 each PO DAILY 06/18/17 Ubidecarenone [Co Q-10] 10 mg PO DAILY 06/18/17 Cholecalciferol (Vitamin D3) [Vitamin D3] 1 tab PO DAILY 08/19/17 Losartan Potassium [Cozaar] 50 mg PO BID 08/19/17 Acetaminophen [Tylenol] 500 mg PO Q6H PRN PRN 05/28/18 Potassium Chloride [K-Dur] 20 meq PO DAILY 05/28/18 Triamterene 37.5MG/Hctz 25MG [Maxzide 37.5 mg-25 mg Tablet] 1 tablet PO DAILY 05/28/18 hydrALAZINE [Apresoline] 25 mg PO TID 05/29/18 Primary Care Physician: Josse Galvan DO [Primary Care Provider] - Please follow up with your Primary Care Physician in: 1-2 weeks Test Results: Test results from this visit will be discussed in further detail at your follow-up appointment, if applicable. Proposed Discharge Date: 05/29/18
--- NOTE | 2018-05-29 13:59 | PCM.DC.SUM ---
<Fredi Jules - Last Filed: 05/29/18 13:59> Discharge Date and Diagnosis Date of Admission: 05/29/18 Date of Discharge: 05/29/18 - Primary Discharge Diagnosis Chest pain, musculoskeletal HLD Hypothyroidism HTN - Secondary Discharge Diagnosis Chronic Problems Dyslipidemia (Chronic) Hypothyroidism (Chronic) BMI greater than 30 (Chronic) Essential hypertension (Chronic) Hospital Course and Treatment Imaging Results: Interpretation Summary The estimated ejection fraction is 65 %. Normal, adequate, treadmill echocardiogram. Negative for ischemia by EKG and echocardiographic criteria. No anginal symptoms noted. Rare PVC noted. Appropriate blood pressure response to exercise. Average exercise capacity for age. Final LVEF is 75%. Although patient did not reach target heart rate, he had an excellent rate pressure product making this an adequate stress test for evaluation of ischemia. Test terminated due to leg discomfort. No complications. RAD/Chest 1 View (Portable) IMPRESSION: No significant change. Elevation of the right hemidiaphragm. No active pulmonary disease. Status post CABG. Operations: None Procedures: Stress test Summary of Care Provided: Physical exam on day of discharge: General: Resting comfortably NAD Psych: A/Ox3 normal affect HEENT: PEARRLA AT NC Neck: Supple NT CV: RRR no m/t/r/g/h Resp: CTA Abd: [id number] Soft NT no guarding or rigidity Ext: DP2+= no edema Skin: W/D normal turgor Lymph/Heme: No active bleeding or adenopathy Neuro: CN2-12 intact Hospital course: The patient is a 67 year old M with history of CAD with prior CABG in June 2017 at [facility], former smoker, hypertension, prediabetes, history of Hodgkin's lymphoma who developed chest pain at home while he was sitting in recliner. Angelica for about 2 hours, he reported to the emergency room and was given nitro, he is not sure if the nitro helped him. His chest pain resolved spontaneously overnight. In the ER he had negative troponin, negative chest x-ray, negative EKG. He was placed in the PCU and placed on telemetry. No events on the monitor overnight. Repeat EKG was negative. Troponin negative ?3. Later that morning he underwent stress test which was negative for ischemia. He was discharged home in stable condition and was advised to follow-up with his PCP in 1 week. He also follows with Dr. Aleksander Elmore and he should follow-up with him as directed. This patient was seen by Fredi Jules PA-C under the supervision of Doctor Veronica. [] Discharge Diet: Low fat/ Low Cholesterol, 2000 mg Sodium Diet Discharge Activity: Return to Normal Activity Home Medications: Medications to take at Discharge Aspirin [Aspirin, Baby] 162 mg PO DAILY@0800 06/18/17 Atorvastatin Calcium [Lipitor] 40 mg PO DAILY 06/18/17 Levothyroxine [Synthroid] 200 mcg PO MOTUTHFR 06/18/17 Levothyroxine [Synthroid] 400 mcg PO MOWE 06/18/17 Magnesium 400 mg PO BID 06/18/17 Metoprolol Succinate 100 mg PO TID 06/18/17 Multivitamin [Multiple Vitamins] 1 each PO DAILY 06/18/17 Ubidecarenone [Co Q-10] 10 mg PO DAILY 06/18/17 Cholecalciferol (Vitamin D3) [Vitamin D3] 1 tab PO DAILY 08/19/17 Losartan Potassium [Cozaar] 50 mg PO BID 08/19/17 Acetaminophen [Tylenol] 500 mg PO Q6H PRN PRN 05/28/18 Potassium Chloride [K-Dur] 20 meq PO DAILY 05/28/18 Triamterene 37.5MG/Hctz 25MG [Maxzide 37.5 mg-25 mg Tablet] 1 tablet PO DAILY 05/28/18 hydrALAZINE [Apresoline] 25 mg PO TID 05/29/18 Primary Care Physician: Josse Galvan DO [Primary Care Provider] - Please follow up with your Primary Care Physician in: 1-2 weeks Disposition: Home Minutes spent on discharge:: 35 Patient Condition:: Stable Medical Necessity - Tobacco Use Smoking Status: Former smoker Meaningful Use Info Meaningful Use Diagnoses (Choose all that apply): None applicable <Rhianna Martin - Last Filed: 05/29/18 14:29> Discharge Date and Diagnosis - Secondary Discharge Diagnosis Chronic Problems Dyslipidemia (Chronic) Hypothyroidism (Chronic) BMI greater than 30 (Chronic) Essential hypertension (Chronic) Hospital Course and Treatment Imaging Results: 05/29/18 06:09 Stress Test Echo w/o Contrast [ECHO] Routine Summary of Care Provided: Patient seen by Fredi Jules PA-C under my supervision. The patient is a 67 year old M history of CAD status post CABG in June 2017, hypertension, diabetes and Hodgkin's look for my. He was admitted with a complaint of chest pain of one days duration. It lasted about 2 hours and he reported to the emergency room was given nitro which she is not sure was of any issues. Chest pain had resolved at time of review. Troponins were negative and chest x-ray and EKG were negative. Stress echocardiogram test done was also negative and showed EF of 65%, with no regional wall motion abnormalities noted. Patient remained stable and was discharged home to follow-up with his primary care doctor and his primary field machinist Dr. Maynard. Patient seen and examined prior to discharge. He only complained of a mild headache which he attributed to nitroglycerin. He denied any fever or chills, any cough or chest pain, shortness of breath, abdominal pain, any diarrhea or vomiting. Review of systems otherwise negative. o/e: Vital Signs Height 6 ft Weight: 211 lb 13.828 oz Weight in Pounds 211.9 lbs Pulse Ox 96 Temperature 98.4 F Pulse Rate 63 Respiratory Rate 15 Blood Pressure 140/74 Blood Pressure Position Semi-Fowlers General: Alert, Oriented x3, Cooperative HEENT: Atraumatic, PERRLA, EOMI, Normocephalic Neck: Supple, No JVD, Negative Carotid Bruits Lungs: Clear to auscultation, Normal air movement Cardiovascular: Regular rate, No murmurs, - - Nontender chest Abdomen: Bowel Sounds Present, Soft, Non Tender Extremities: No edema, Capillary Refill Less than 3 Seconds Skin: No rashes, No breakdown Musculoskeletal: No Tenderness to Palpation of Joints or Extremities Neurological: - - CN II-XII intact, power 5/5 in all extremities. Hard of hearing Plan as stated above. Agree with rest of note, assessment and plan by Fredi Jules PA-C. Discharge summary also copied to his field machinist Dr Elmore at patient's request. [] Code Visit Inpatient E&M: 83179 Disch Hosp
--- NOTE | 2018-05-29 14:03 | DS.PCM_ITS ---
<Fredi Jules - Last Filed: 05/29/18 13:59> Discharge Date and Diagnosis Date of Admission: 05/29/18 Date of Discharge: 05/29/18 - Primary Discharge Diagnosis Chest pain, musculoskeletal HLD Hypothyroidism HTN - Secondary Discharge Diagnosis Chronic Problems Dyslipidemia (Chronic) Hypothyroidism (Chronic) BMI greater than 30 (Chronic) Essential hypertension (Chronic) Hospital Course and Treatment Imaging Results: Interpretation Summary The estimated ejection fraction is 65 %. Normal, adequate, treadmill echocardiogram. Negative for ischemia by EKG and echocardiographic criteria. No anginal symptoms noted. Rare PVC noted. Appropriate blood pressure response to exercise. Average exercise capacity for age. Final LVEF is 75%. Although patient did not reach target heart rate, he had an excellent rate pressure product making this an adequate stress test for evaluation of ischemia. Test terminated due to leg discomfort. No complications. RAD/Chest 1 View (Portable) IMPRESSION: No significant change. Elevation of the right hemidiaphragm. No active pulmonary disease. Status post CABG. Operations: None Procedures: Stress test Summary of Care Provided: Physical exam on day of discharge: General: Resting comfortably NAD Psych: A/Ox3 normal affect HEENT: PEARRLA AT NC Neck: Supple NT CV: RRR no m/t/r/g/h Resp: CTA Abd: [id number] Soft NT no guarding or rigidity Ext: DP2+= no edema Skin: W/D normal turgor Lymph/Heme: No active bleeding or adenopathy Neuro: CN2-12 intact Hospital course: The patient is a 67 year old M with history of CAD with prior CABG in June 2017 at [facility], former smoker, hypertension, prediabetes, history of Hodgkin's lymphoma who developed chest pain at home while he was sitting in recliner. Angelica for about 2 hours, he reported to the emergency room and was given nitro, he is not sure if the nitro helped him. His chest pain resolved spontaneously overnight. In the ER he had negative troponin, negative chest x- ray, negative EKG. He was placed in the PCU and placed on telemetry. No events on the monitor overnight. Repeat EKG was negative. Troponin negative ? 3. Later that morning he underwent stress test which was negative for ischemia. He was discharged home in stable condition and was advised to follow- up with his PCP in 1 week. He also follows with Dr. Aleksander Elmore and he should follow-up with him as directed. This patient was seen by Fredi Jules PA-C under the supervision of Doctor Veronica. [] Discharge Diet: Low fat/ Low Cholesterol, 2000 mg Sodium Diet Discharge Activity: Return to Normal Activity Home Medications: Medications to take at Discharge Aspirin [Aspirin, Baby] 162 mg PO DAILY@0800 06/18/17 Atorvastatin Calcium [Lipitor] 40 mg PO DAILY 06/18/17 Levothyroxine [Synthroid] 200 mcg PO MOTUTHFR 06/18/17 Levothyroxine [Synthroid] 400 mcg PO MOWE 06/18/17 Magnesium 400 mg PO BID 06/18/17 Metoprolol Succinate 100 mg PO TID 06/18/17 Multivitamin [Multiple Vitamins] 1 each PO DAILY 06/18/17 Ubidecarenone [Co Q-10] 10 mg PO DAILY 06/18/17 Cholecalciferol (Vitamin D3) [Vitamin D3] 1 tab PO DAILY 08/19/17 Losartan Potassium [Cozaar] 50 mg PO BID 08/19/17 Acetaminophen [Tylenol] 500 mg PO Q6H PRN PRN 05/28/18 Potassium Chloride [K-Dur] 20 meq PO DAILY 05/28/18 Triamterene 37.5MG/Hctz 25MG [Maxzide 37.5 mg-25 mg Tablet] 1 tablet PO DAILY hydrALAZINE [Apresoline] 25 mg PO TID 05/29/18 Primary Care Physician: Josse Galvan DO [Primary Care Provider] - Please follow up with your Primary Care Physician in: 1-2 weeks Disposition: Home Minutes spent on discharge:: 35 Patient Condition:: Stable Medical Necessity - Tobacco Use Smoking Status: Former smoker Meaningful Use Info Meaningful Use Diagnoses (Choose all that apply): None applicable <Rhianna Martin - Last Filed: 05/29/18 14:29> Discharge Date and Diagnosis - Secondary Discharge Diagnosis Chronic Problems Dyslipidemia (Chronic) Hypothyroidism (Chronic) BMI greater than 30 (Chronic) Essential hypertension (Chronic) Hospital Course and Treatment Imaging Results: 05/29/18 06:09 Stress Test Echo w/o Contrast [ECHO] Routine Summary of Care Provided: Patient seen by Fredi Jules PA-C under my supervision. The patient is a 67 year old M history of CAD status post CABG in June 2017 , hypertension, diabetes and Hodgkin's look for my. He was admitted with a complaint of chest pain of one days duration. It lasted about 2 hours and he reported to the emergency room was given nitro which she is not sure was of any issues. Chest pain had resolved at time of review. Troponins were negative and chest x-ray and EKG were negative. Stress echocardiogram test done was also negative and showed EF of 65%, with no regional wall motion abnormalities noted. Patient remained stable and was discharged home to follow-up with his primary care doctor and his primary sales representative marine [employer] Dr. Maynard. Patient seen and examined prior to discharge. He only complained of a mild headache which he attributed to nitroglycerin. He denied any fever or chills, any cough or chest pain, shortness of breath, abdominal pain, any diarrhea or vomiting. Review of systems otherwise negative. o/e: Vital Signs Height 6 ft Weight: 211 lb 13.828 oz Weight in Pounds 211.9 lbs Pulse Ox 96 Temperature 98.4 F Pulse Rate 63 Respiratory Rate 15 Blood Pressure 140/74 Blood Pressure Position Semi-Fowlers General: Alert, Oriented x3, Cooperative HEENT: Atraumatic, PERRLA, EOMI, Normocephalic Neck: Supple, No JVD, Negative Carotid Bruits Lungs: Clear to auscultation, Normal air movement Cardiovascular: Regular rate, No murmurs, - - Nontender chest Abdomen: Bowel Sounds Present, Soft, Non Tender Extremities: No edema, Capillary Refill Less than 3 Seconds Skin: No rashes, No breakdown Musculoskeletal: No Tenderness to Palpation of Joints or Extremities Neurological: - - CN II-XII intact, power 5/5 in all extremities. Hard of hearing Plan as stated above. Agree with rest of note, assessment and plan by Fredi Jules PA-C. Discharge summary also copied to his sales representative marine supplies Dr Elmore at patient's request. [] Code Visit Inpatient E&M: 79288 Disch Hosp
== END 2018-05-29 12:33 | disposition home or self-care (01) ==
LOC: ED 05-29 00:26 → PCU 05-29 01:02
PROVIDERS: Admitting Provider Hospitalist; Emergency Provider Emergency Medicine; Family Provider Student in an Organized Health Care Education/Training Program; PCP Student in an Organized Health Care Education/Training Program; Visit Provider Student in an Organized Health Care Education/Training Program
DX: R07.89 Other chest pain (principal); K21.9 Gastro-esophageal reflux disease without esophagitis; I25.10 Atherosclerotic heart disease of native coronary artery without angina pectoris; I10 Essential (primary) hypertension; E03.9 Hypothyroidism, unspecified; E78.5 Hyperlipidemia, unspecified; Z95.1 Presence of aortocoronary bypass graft; Z87.891 Personal history of nicotine dependence; Z79.899 Other long term (current) drug therapy; Z79.82 Long term (current) use of aspirin; C81.90 Hodgkin lymphoma, unspecified, unspecified site; Z92.21 Personal history of antineoplastic chemotherapy; Z92.3 Personal history of irradiation; R73.03 Prediabetes
CPT/HCPCS: 36415; 71045; 80048; 84484; 85025; 85027; 85610; 85730; 93005; 93017; 93350; 99218; 99283; A4216; G0378

== ENCOUNTER 2021-03-06 10:00 | Outpatient (RCR) | payer MEDICARE, OTHER, SELFPAY | END 2021-03-19 23:59 | disposition home or self-care (01) | LOC: DC 10:00 | PROVIDERS: PCP Student in an Organized Health Care Education/Training Program; Visit Provider Nurse Practitioner Family | DX: E11.9 Type 2 diabetes mellitus without complications (principal) | CPT/HCPCS: 97802; G0108 ==

== ENCOUNTER 2022-01-10 10:00 | Outpatient (RCR) | payer MEDICARE, OTHER, SELFPAY | END 2022-01-17 23:59 | LOC: DC 10:00 | PROVIDERS: PCP Student in an Organized Health Care Education/Training Program; Referring Provider Student in an Organized Health Care Education/Training Program; Visit Provider Student in an Organized Health Care Education/Training Program | DX: E11.9 Type 2 diabetes mellitus without complications (principal); E66.3 Overweight; Z68.28 Body mass index [BMI] 28.0-28.9, adult | CPT/HCPCS: 97802; G0108 ==

== ENCOUNTER 2022-02-04 10:00 | Outpatient (RCR) | payer MEDICARE, OTHER, SELFPAY | END 2022-02-16 23:59 | LOC: DC 10:00 | PROVIDERS: PCP Student in an Organized Health Care Education/Training Program; Referring Provider Student in an Organized Health Care Education/Training Program; Visit Provider Student in an Organized Health Care Education/Training Program | DX: E11.9 Type 2 diabetes mellitus without complications (principal); E66.3 Overweight; Z68.28 Body mass index [BMI] 28.0-28.9, adult | CPT/HCPCS: 97803 ==

== ENCOUNTER 2022-03-07 13:00 | Outpatient (RCR) | payer MEDICARE, OTHER, SELFPAY | END 2022-03-19 23:59 | LOC: DC 13:00 | PROVIDERS: PCP Student in an Organized Health Care Education/Training Program; Referring Provider Student in an Organized Health Care Education/Training Program; Visit Provider Student in an Organized Health Care Education/Training Program | DX: E11.9 Type 2 diabetes mellitus without complications (principal); E66.3 Overweight; Z68.28 Body mass index [BMI] 28.0-28.9, adult | CPT/HCPCS: 97803; G0108 ==

== ENCOUNTER 2022-06-26 10:01 | Outpatient (RCR) | payer MEDICARE, OTHER, SELFPAY | END 2022-06-26 23:59 | disposition home or self-care (01) | LOC: DC 10:01 | PROVIDERS: PCP Student in an Organized Health Care Education/Training Program; Referring Provider Student in an Organized Health Care Education/Training Program; Visit Provider Student in an Organized Health Care Education/Training Program | DX: E11.9 Type 2 diabetes mellitus without complications (principal); E66.3 Overweight; Z68.28 Body mass index [BMI] 28.0-28.9, adult | CPT/HCPCS: 97803 ==

== ENCOUNTER 2022-09-18 10:00 | Outpatient (RCR) | payer MEDICARE, OTHER, SELFPAY ==
--- NOTE | 2022-08-21 11:02 | HP.PTEVAL_ITS ---
Patient's Visit Information KINSEY SAWANT is a 72 year old M referred to Physical Therapy by Dr. Alphonse Ureña MD with a diagnosis of R knee OA. Date of Evaluation: 08/21/22 Physical Therapist: Gonsalo Ponce, PT, ATC - Visit Plan Frequency: 2-3x /Week Duration: 4-6 Weeks Plan: R knee stretching and strengthening, balance and proprio, core stab ex's, nustep and HEP - Subjective Pt notes R knee has been sore for several years. Pt notes he tore the meniscus in his knee a couple years ago which he chose not to have surgery on secondary to covid. Pt notes he is now a candidate for R TKA due to the accumulative degeneration in his R knee. Pt reports he is retired and worked for the [employer]. Pt reports his main goal for coming here at this time is to avoid surgery in his R TKA. Pt reports he is able to do most of his IADL's, but notes he just has to slow down. Pt reports his major limitation is stair negotiation which results in a lot of pain. Pt reports sleep difficulty at this time secondary to pain. Pt reports he did have recent x-rays which revealed sig degenerative changes. 2/10 pain while sitting here in the clinic at rest, 4/10 at worst (stair negotiation or when he twists wrong on his R LE). - Pain R knee Pain Intensity (Out of 10): 1 Pain Intensity Range: 4 - Objective Palpation: No sig pain throughout R knee. No obvious deformity at this time. Neuro: B LE sensation is WNL to light touch. B bicipital reflex= 2/3. Girth at joint line: B knees 38 cm. ROM: L knee 0-125, R knee 0-118. MMT: L knee flex= 36, ext= 53; R knee flex= 36, ext= 58 #F. Special tests: Pos apley compression test - Balance/Special Test Scores Lower Extremity Functional Score: 49 - Goals Goal 1:: Decrease R knee pain x 50 % to aid with sleep Goal Time Frame: 4-6 Weeks Goal 2:: Pt will be able to negotiate 10 stairs without difficulty or pain to aid with I with community mobility Goal Time Frame: 4-6 Weeks Goal 3:: I with HEP Goal Time Frame: 4-6 Weeks - Rehabilitation Potential Physical Therapy Diagnosis: R knee pain and limited ROM secondary to R knee OA Rehabilitation Potential: Good - Anticipated Interventions Patient/Client Instruction: Educate patient on: Condition, Plan of Care For the Purpose of:: To improve self management Therapeutic Exercise to Include: Strength training, Endurance training, Balance training, Active ROM, Dynamic Lumbar Stabilization For the Purpose of:: To decrease pain, To increase ROM, To improve muscle performance and motor function Thank you for the opportunity to evaluate your patient. For Medicare and Medicare HMO plans, please review the plan of care and approve it. It will need to be FAXED BACK to us at [phone] for Medicare purposes. For Medicare only, by signing this I certify the plan of care. Please let me know if there are questions or concerns regarding this plan of care. Physician Signature: Date:
--- NOTE | 2022-09-18 10:31 | HP.PTDCSUM ---
It has been my pleasure to treat KINSEY SAWANT referred by Dr. Alphonse Ureña MD, with the diagnosis of R knee OA for a total of 12 visit(s). Discharge Date: Please see the following information for a summary of their discharge status. Subjective: I am ready to graduate R knee Pain Intensity (Out of 10): 2 % Improvement: 50 Objective/Function: R knee pain ranges from 2-5/10. No sleep difficulty at this time. Pt is able to negotiate 10 stairs reciprocally without UE use. Pt is I with HEP Goal 1:: Decrease R knee pain x 50 % to aid with sleep Goal Progress: Goal Met Goal 2:: Pt will be able to negotiate 10 stairs without difficulty or pain to aid with I with community mobility Goal Progress: Goal Met Goal 3:: I with HEP Goal Progress: Goal Met Plan: Discharge to HEP If there are questions or concerns regarding this patient's physical therapy, please feel free to call me at [phone]. Thank you for the referral of this patient. Sincerely, Gonsalo Ponce, PT, ATC Balance/Gait/Functional tests - Balance/Special Test Scores Lower Extremity Functional Score: 63
== END 2022-09-18 12:23 | disposition home or self-care (01) ==
LOC: PT 10:00
PROVIDERS: PCP Student in an Organized Health Care Education/Training Program; Referring Provider Orthopaedic Surgery; Visit Provider Orthopaedic Surgery
DX: M17.11 Unilateral primary osteoarthritis, right knee (principal)
CPT/HCPCS: 97110; 97161; 97164

== ENCOUNTER 2024-12-20 19:02 | Emergency (ER) | payer MEDICARE, OTHER, SELFPAY ==
[2024-12-20 19:03] VITALS: BP 180/108; PULSE 89; RESP 16; TEMP 36.3; O2SAT 98
--- NOTE | 2024-12-20 19:35 | CT_ITS ---
PROCEDURE: ABDOMEN/PELVIS W IV CONT ONLY REASON FOR EXAM: Left-sided pain TECHNIQUE: Abdomen and pelvis CT with intravenous contrast. COMPARISON: None. FINDINGS: Lung bases: Cardiomegaly with diffuse coronary artery calcifications. Nodular density at the base of the right lung measuring 15 mm. Mild left pleural effusion Liver: Diffuse fatty infiltration. Gallbladder: Unremarkable. Spleen: Normal size. Pancreas: Cystic masses in the head of the pancreas measuring 2.9 x 1.5 cm and 3.2 x 3.3 cm. Adrenals: Unremarkable. Kidneys: Normal renal sizes. No hydronephrosis. Hypodensities in the left kidney with the largest measuring 2.4 cm and exophytic Bladder: Unremarkable. Reproductive Organs: Prostate measures 5.6 cm. Bowel: Unremarkable. Appendix: Normal. Lymph nodes: No suspicious lymph node enlargement. Vasculature: Mild diffuse atherosclerotic calcifications are noted. Peritoneum / Retroperitoneum: No ascites. No free air. Bones: Degenerative changes of the spine. CT/Abdomen/Pelvis W IV Cont ONLY IMPRESSION: 1. No acute CT abnormality in the abdomen and pelvis. 2. Cystic masses in the head of the pancreas. Neoplasm not excluded. 3. Nodular mass of the base of the right lung. As this may represent round at electasis, pulmonary nodule not excluded. 4. Cardiomegaly with diffuse coronary artery calcifications 5. Mild left pleural effusion 6. Prostatomegaly One or more dose reduction techniques were used (e.g., Automated exposure contr ol, adjustment of the mA and/or kV according to patient size, use of iterative reconstruction technique). Reading Location: [facility]
--- NOTE | 2024-12-20 19:39 | EDS_ITS ---
HPI <ABDULLAHI Pineda - Last Filed: 12/20/24 21:33> History of Present Illness Chief Complaint: GI Bleed Narrative Narrative: 74-year-old male with PMH of HTN, HLD, DM2, CVA, hypothyroidism presents with abdominal pain and rectal bleeding. Around 1 [place] and felt the urge to have a bowel movement. He went to the library nearby states he had a large loose bowel movement was on the toilet for about 20 minutes. There was no bleeding at that time. He went home and developed LLQ abdominal pain and the continued urge to have BMs throughout the day but only had 1 more. This evening when he sat down to try and have another bowel movement there was bright red blood in the toilet. He thinks there was a blood clot at the bottom of the bowl. He has no rectal pain. No fever, chills, nausea or vomiting. He states he is on 2-81 mg aspirins a day but no blood thinners. He reports having a colonoscopy last year with benign polyps removed. PFSH <ABDULLAHI Pineda - Last Filed: 12/20/24 21:33> [facility] Home Medications ?Medication ?Instructions ?Recorded ?Last Taken ?Type aspirin 81 mg chewable tablet 162 mg PO DAILY@0800 [facility] 06/18/17 05/28/18 History atorvastatin 20 mg tablet 40 mg PO DAILY cholesterol 0 06/18/17 05/28/18 History coenzyme Q10 10 mg capsule (Co 10 mg PO DAILY suppleme nt 06/18/17 05/28/18 History Q-10) levothyroxine 100 mcg tablet 200 mcg PO MOTUTHFR thyro id 06/18/17 05/28/18 History levothyroxine 100 mcg tablet 400 mcg PO MOWE thyroid 0 06/18/17 05/27/18 History magnesium 200 mg tablet 400 mg PO BID supplement 05/28/18 History metoprolol succinate 100 mg 100 mg PO TID blood pressu re 06/18/17 05/28/18 History tablet,extended release 24 hr multivitamin (Multiple Vitamins 1 ea PO DAILY suppleme nt 06/18/17 05/28/18 History tablet) cholecalciferol (vitamin D3) 25 1 tab PO DAILY supplem ent 08/19/17 05/28/18 History mcg (1,000 unit) capsule (Vitamin D3) losartan 50 mg tablet 50 mg PO BID blood pressure 08/19/17 05/28/18 History acetaminophen 500 mg tablet 500 mg PO Q6H PRN PRN Pain 05/28/18 05/28/18 History potassium chloride 20 mEq 20 meq PO DAILY supplement 0 05/28/18 05/28/18 History tablet,extended release(part/cryst) (Klor-Con M) triamterene 37.5 1 tab PO DAILY blood pressur e 05/28/18 05/28/18 History mg-hydrochlorothiazide 25 mg tablet (Maxzide-25mg) hydralazine 25 mg tablet 25 mg PO TID blood pressure 05/29/18 05/28/18 History Allergy/AdvReac Type Severity Reaction Status Date / Time Iodinated Contrast Media AdvReac Nausea/Vom/ Verified 12/20/24 19:07 (Iodinated Contrast- Oral Diarrhea and IV Dye) Social History Smoking Status: Former smoker ROS <ABDULLAHI Pineda - Last Filed: 12/20/24 21:33> ROS ED ROS Narrative Constitutional: Negative for fever, chills, malaise. GI: Positive for abdominal pain. Negative for nausea, vomiting, constipation, melena, hematochezia. : Negative for dysuria, hematuria or frequency. EXAM <ABDULLAHI Pineda - Last Filed: 12/20/24 21:33> Physical Exam Narrative Exam Narrative: CONST: Patient sitting in no acute distress. EYES: Normal inspection. NECK: Normal inspection. RESP: No respiratory distress, CTAB. CVS: Regular rate and rhythm, no murmur, no gallop. ABD: Soft with minimal left lower quadrant tenderness, no guarding or rebound, nondistended. SKIN: Color normal, no rash, warm, dry, intact. EXTREMITIES: Normal appearance, no pedal edema. NEURO: Alert and answering questions appropriately. PSYCH: Normal affect. Const Vital Signs: 12/20/24 19:03 12/20/24 21:45 Temperature 97.3 F L 98.3 F Temperature Source Temporal Pulse Rate 89 73 Respiratory Rate 16 18 Blood Pressure 180/108 H 143/88 H Blood Pressure Mean 132 106 Pulse Ox 98 97 Oxygen Delivery Method Room Air <Dr. Jose Kee DO - Last Filed: 12/20/24 23:20> Physical Exam Const Vital Signs: 12/20/24 19:03 12/20/24 21:45 Temperature 97.3 F L 98.3 F Temperature Source Temporal Pulse Rate 89 73 Respiratory Rate 16 18 Blood Pressure 180/108 H 143/88 H Blood Pressure Mean 132 106 Pulse Ox 98 97 Oxygen Delivery Method Room Air MDM <ABDULLAHI Pineda - Last Filed: 12/20/24 21:33> [facility] Narrative Medical decision making narrative: History gathered from: Patient and his Differential includes but not limited to diverticulosis, diverticulitis, hemorrhoids, neoplasm 74-year-old male had 2 episodes of loose stool and then developed left-sided abdominal pain and 1 episode of bright red rectal bleeding. He also has tenesmus. He is not on blood thinners. He is on aspirin 162 mg a day. He appears well and nontoxic with stable vital signs. He is a soft, nonsurgical abdomen. He has no signs of active rectal bleeding or external hemorrhoids overall labs are unremarkable. WBC is 9.8, hemoglobin 13.1, platelets 211. It looks like he actually has a history of mild normocytic anemia but today is in the normal range. CMP shows glucose of 143 but is otherwise normal. Lipase WNL. CT of the abdomen/pelvis shows no acute findings and nothing to correlate with his symptoms. He has masses in the head of the pancreas and a nodular mass in the base of the right lung. I think this is an incidental finding. I sent in [facility] fast pass and they should contact him tomorrow for the next steps and further evaluation. Since he is hemodynamically stable with normal blood counts and not on anticoagulation I think he can follow-up with outpatient GI for his rectal bleeding. However, I discussed return precautions thoroughly. He was discharged in stable condition. Lab Data Attestation: I reviewed the patient's lab results. Labs: Laboratory Results - last 24 hr 12/20/24 19:55 WBC 9.8 RBC 4.20 L Hgb 13.1 Hct 37.6 L MCV 89.5 MCH 31.2 MCHC 34.8 RDW Std Deviation 42.3 RDW Coeff of Tasia 13.1 Plt Count 211 MPV 10.2 Immature Gran % (Auto) 0.300 Neut % (Auto) 86.3 H Lymph % (Auto) 3.8 L Thayer % (Auto) 7.5 Eos % (Auto) 1.8 Baso % (Auto) 0.3 Absolute Neuts (auto) 8.4 H Absolute Lymphs (auto) 0.37 L Nucleated RBC % 0 Sodium 135 Potassium 3.4 Chloride 99 Carbon Dioxide 26.0 Anion Gap 10 BUN 15 Creatinine 0.78 Est GFR (MDRD) Non-Af 92 BUN/Creatinine Ratio 19.6 Glucose 143 H Calcium 9.2 Total Bilirubin 0.62 AST 31 ALT 27 Alkaline Phosphatase 76 Total Protein 7.4 Albumin 4.3 Globulin 3.1 Albumin/Globulin Ratio 1.4 Lipase 36 Radiography Diagnostic Testing: Clinical Impression(s) from Imaging Studies Abdomen/Pelvis CT 12/20/24 19:35 IMPRESSION: 1. No acute CT abnormality in the abdomen and pelvis. 2. Cystic masses in the head of the pancreas. Neoplasm not excluded. 3. Nodular mass of the base of the right lung. As this may represent round atelectasis, pulmonary nodule not excluded. 4. Cardiomegaly with diffuse coronary artery calcifications 5. Mild left pleural effusion 6. Prostatomegaly One or more dose reduction techniques were used (e.g., Automated exposure control, adjustment of the mA and/or kV according to patient size, use of iterative reconstruction technique). Reading Location: [facility] <Dr. Jose Kee, DO - Last Filed: 12/20/24 23:20> [facility] Narrative Medical decision making narrative: History gathered from: Patient and his Differential includes but not limited to diverticulosis, diverticulitis, hemorrhoids, neoplasm 74-year-old male had 2 episodes of loose stool and then developed left-sided abdominal pain and 1 episode of bright red rectal bleeding. He also has tenesmus. He is not on blood thinners. He is on aspirin 162 mg a day. He appears well and nontoxic with stable vital signs. He is a soft, nonsurgical abdomen. He has no signs of active rectal bleeding or external hemorrhoids overall labs are unremarkable. WBC is 9.8, hemoglobin 13.1, platelets 211. It looks like he actually has a history of mild normocytic anemia but today is in the normal range. CMP shows glucose of 143 but is otherwise normal. Lipase WNL. CT of the abdomen/pelvis shows no acute findings and nothing to correlate with his symptoms. He has masses in the head of the pancreas and a nodular mass in the base of the right lung. I think this is an incidental finding. I sent in [facility] fast pass and they should contact him tomorrow for the next steps and further evaluation. Since he is hemodynamically stable with normal blood counts and not on anticoagulation I think he can follow-up with outpatient GI for his rectal bleeding. However, I discussed return precautions thoroughly. He was discharged in stable condition. ED attending note: I evaluated the patient in conjunction with the [facility]. I agree with his/her statements and above findings. I have personally performed a face to face assessment of the patient and have reviewed the DANIA Note. I performed a substantive portion of the visit including all aspects of the following. I personally saw the patient performed chart review, physical exam, reviewed labs, imaging (if obtained), and formulated a treatment and management plan. This note was generated with [email or web address] dictation software. It may contain incorrect words, spelling, and punctuation that were not noted in review of the chart prior to signing. Lab Data Labs: Laboratory Results - last 24 hr 12/20/24 19:55 WBC 9.8 RBC 4.20 L Hgb 13.1 Hct 37.6 L MCV 89.5 MCH 31.2 MCHC 34.8 RDW Std Deviation 42.3 RDW Coeff of Tasia 13.1 Plt Count 211 MPV 10.2 Immature Gran % (Auto) 0.300 Neut % (Auto) 86.3 H Lymph % (Auto) 3.8 L Thayer % (Auto) 7.5 Eos % (Auto) 1.8 Baso % (Auto) 0.3 Absolute Neuts (auto) 8.4 H Absolute Lymphs (auto) 0.37 L Nucleated RBC % 0 Sodium 135 Potassium 3.4 Chloride 99 Carbon Dioxide 26.0 Anion Gap 10 BUN 15 Creatinine 0.78 Est GFR (MDRD) Non-Af 92 BUN/Creatinine Ratio 19.6 Glucose 143 H Calcium 9.2 Total Bilirubin 0.62 AST 31 ALT 27 Alkaline Phosphatase 76 Total Protein 7.4 Albumin 4.3 Globulin 3.1 Albumin/Globulin Ratio 1.4 Lipase 36 Radiography Diagnostic Testing: Clinical Impression(s) from Imaging Studies Abdomen/Pelvis CT 12/20/24 19:35 IMPRESSION: 1. No acute CT abnormality in the abdomen and pelvis. 2. Cystic masses in the head of the pancreas. Neoplasm not excluded. 3. Nodular mass of the base of the right lung. As this may represent round atelectasis, pulmonary nodule not excluded. 4. Cardiomegaly with diffuse coronary artery calcifications 5. Mild left pleural effusion 6. Prostatomegaly One or more dose reduction techniques were used (e.g., Automated exposure control, adjustment of the mA and/or kV according to patient size, use of iterative reconstruction technique). [facility] T[facility] Chief Complaint: GI Bleed ED Midlevel Provider: Roberta Campbell ED Provider: Jose Kee Dx/Rx/DC Orders Clinical Impression: Tenesmus, Acute lower gastrointestinal bleeding, Cystic mass of pancreas Instructions: ED Lower GI Bleeding (Stable) Prescriptions: No Action multivitamin [Multiple Vitamins] 1 EACH tablet 1 ea PO DAILY atorvastatin 20 MG tablet 40 mg PO DAILY metoprolol succinate 100 MG tablet extended release 24 hr 100 mg PO TID coenzyme Q10 [Co Q-10] 10 MG capsule 10 mg PO DAILY levothyroxine 100 MCG tablet 200 mcg PO MOTUTHFR levothyroxine 100 MCG tablet 400 mcg PO MOWE aspirin 81 MG tablet,chewable 162 mg PO DAILY@0800 magnesium 200 MG tablet 400 mg PO BID losartan 50 MG tablet 50 mg PO BID cholecalciferol (vitamin D3) [Vitamin D3] 1,000 UNIT capsule 1 tab PO DAILY acetaminophen 500 MG tablet 500 mg PO Q6H PRN PRN (Reason: Pain) potassium chloride [Klor-Con M20] 20 MEQ tablet 20 meq PO DAILY triamterene-hydrochlorothiazid [Maxzide-25mg] 1 EACH tablet 1 tab PO DAILY hydralazine 25 MG tablet 25 mg PO TID Other Ambulatory Orders: Fast Pass: Oncology Referral [facility] (Routine) Facility: [facility] - Location: [facility] Ordered By: Dr. Jose Kee Primary Care Provider: Josse Galvan Referrals: Josse Galvan DO [Primary Care Provider] - Friend,DO Srinivas [Med Staff - Active Staff] - Activity Restrictions/Additional Instructions: Your blood counts are within the normal range and your CT scan does not show anything abnormal related to bleeding or colon infection so I do not think you need admitted for this issue. However, you do need close follow-up with a distribution center administrator. Call Dr. Sanon's office for an appointment and tell them you were in the ER for rectal bleeding. If your pain or bleeding significantly worsens or you feel lightheaded or dizzy or pass out you need to come immediat sim to the emergency room. Your CT scan also showed masses in the head of your pancreas. This needs to be further evaluated to check for cancer. Someone from [facility] should call you tomorrow to discuss the next steps. Print Language: Vietnamese Disposition Disposition: Home, Self Care Discharge Date/Time: 12/20/24 21:46
[2024-12-20 20:06] LABS: Absolute Lymphocyte Count 0.37 X10^3/uL (0.83-4.51); Absolute Neutrophil Count 8.4 X10^3/uL (2.0-7.7); Basophil# 0.03 X10^3/uL; Basophil% 0.3 % (0-1); Eosinophil# 0.18 X10^3/uL; Eosinophils% 1.8 % (0-5); Hematocrit 37.6 % (40-54); Hemoglobin 13.1 g/dL (13.0-16.5); Lymphocyte # 0.37 X10^3/ul (0.83-4.51); Lymphocyte % 3.8 % (19-41); Mean Corp Hgb Conc 34.8 g/dL (32-36); Mean Corpuscular Hgb 31.2 pg (27.0-32.0); Mean Corpuscular Volume 89.5 fL (80-94); Mean Platelet Vol. 10.2 fl (6.2-12.0); Monocyte# 0.73 X10^3/uL; Monocyte% 7.5 % (0-10); NRBC Flagged by Analyzer 0 % (0-5); Neutrophil # 8.41 X10^3/uL (2.7-7.7); Neutrophil % 86.3 % (47-70); POSITIVE DIFFERENTIAL YES; Platelet Count 211 K/mm3 (150-450); RBC Distribution Width CV 13.1 % (11.6-14.6); RBC Distribution Width SD 42.3 fl (35.1-43.9); White Blood Count 9.8 K/mm3 (4.4-11.0)
[2024-12-20] MEDS: 0.9% Normal Saline (1000mL) 1,000 ML 999 ML IV (20:16)
[2024-12-20] MEDS: Morphine 4 MG/ML Syringe IV (20:17)
[2024-12-20] MEDS: Ondansetron 4 MG/2 ML Vial IV (20:17)
[2024-12-20 20:47] LABS: ALB/GLOB Ratio 1.4 RATIO (0.9-2.4); AST(SGOT) 31 U/L (<=37); Alanine Aminotransfer ALT/SGPT 27 U/L (<=46); Albumin, Serum 4.3 g/dL (3.4-4.8); Alkaline Phosphatase 76 U/L (40-129); Anion Gap 10 (5-15); BUN 15 mg/dL (4-19); BUN/Creat Ratio 19.6 RATIO (10-20); Calcium,Total 9.2 mg/dL (7.6-11.0); Chloride 99 mmol/L (98-108); Creatinine, Serum 0.78 mg/dL (0.70-1.20); EST Glomerular Filtration Rate 92 (>60); Globulin 3.1 g/dL (2.2-4.2); Glucose 143 mg/dL (70-99); Lipase 36 U/L (13-75); Potassium 3.4 mmol/L (3.3-5.1); Protein, Total 7.4 g/dL (5.9-8.4); Sodium Level 135 mmol/L (133-145); Total Bilirubin 0.62 mg/dL (0.00-1.30)
[2024-12-20 21:45] VITALS: BP 143/88; PULSE 73; RESP 18; TEMP 36.8; O2SAT 97
== END 2024-12-20 21:46 | disposition home or self-care (01) ==
PROVIDERS: Physician Assistant; Emergency Provider Emergency Medicine; PCP Student in an Organized Health Care Education/Training Program; Visit Provider Emergency Medicine
DX: R19.8 Other specified symptoms and signs involving the digestive system and abdomen (principal); E11.9 Type 2 diabetes mellitus without complications; K86.89 Other specified diseases of pancreas; R91.8 Other nonspecific abnormal finding of lung field; R10.32 Left lower quadrant pain; K92.2 Gastrointestinal hemorrhage, unspecified; I10 Essential (primary) hypertension; E03.9 Hypothyroidism, unspecified; E78.5 Hyperlipidemia, unspecified; Z79.82 Long term (current) use of aspirin; Z79.890 Hormone replacement therapy; Z79.899 Other long term (current) drug therapy; Z87.891 Personal history of nicotine dependence; Z86.73 Personal history of transient ischemic attack (TIA), and cerebral infarction without residual deficits
CPT/HCPCS: 74177; 80053; 83690; 85025; 96361; 96374; 96375; 99283; Q9967; A4216; J2405